=== PATIENT | male | born 1985 | race Caucasian/White ===

== ENCOUNTER 2017-01-25 20:25 | Emergency (ER) | payer OTHER ==
[2017-01-25 20:46] VITALS: BMI 37.6
--- NOTE | 2017-01-25 20:46 | PDOC ---
History of Present Illness - General History Source: Patient Exam Limitations: No Limitations - History of Present Illness Initial Comments: 01/25/17 21:10 The patient is a 31 year old male, with no significant past medical history, who presents to the emergency room complaining of sharp, intense head pain that radiates down the the right side of his neck and nausea. He states that he felt a sudden intense pain that started after he sneezed and coughed really hard. He reports sharp pain behind the right eye. He notes some nausea, but no episodes of vomiting. The head pain is exacerbated by bright light. He has not taken any medication for the pain. Denies changes in vision, dizziness, lightheadedness. Denies recent head trauma. Denies fever, chills. PAST MEDICAL HISTORY: no significant history PAST SURGICAL HISTORY: no significant history FAMILY HISTORY: no pertinent history SOCIAL HISTORY: Pt lives with family and is employed. MEDICATIONS: reviewed ALLERGIES: As per nursing notes Review of Systems General: No fevers or chills, no weakness, no weight loss HEENT: No change in vision. No sore throat, No ear pain CardioVascular: No chest pain or shortness of breath Respiratory:No cough, or wheezing. Gastrointestinal: +nausea no vomiting, diarrhea or constipation, No rectal bleeding Genitourinary: No dysuria, hematuria, or frequency Musculoskeletal: No joint or muscle pain or swelling Neurologic: +headache that radiates to the right side of his neck. No vertigo, dizziness or loss of consciousness Psychiatric: nor depression Skin: No rashes or easy bruising Endocrine: no increased thirst or abnormal weight change Allergic: no skin or latex allergy All other systems reviewed and normal Physical Exam GENERAL: The patient is awake, alert, and fully oriented, in moderate distress. HEAD: Normal with no signs of trauma. EYES: +photophobia. Pupils equal, round and reactive to light, extraocular movements intact, sclera anicteric, conjunctiva clear. NECK: tenderness on palpation of right lateral neck. Pt complains of discomfort with flexion but no nuchal rigidity. EXTREMITIES: Normal range of motion, no edema. NEUROLOGICAL: negative kernig's sign. negative brudzinski's sign. Normal speech , normal gait. PSYCH: Normal mood, normal affect. SKIN: Warm, Dry, normal turgor, no rashes or lesions noted. <Asha Strickland - Last Filed: 01/25/17 21:10> - General History Source: Patient Exam Limitations: No Limitations - History of Present Illness Initial Comments: 01/26/17 00:46 A portion of this note was documented by scribe services under my direction. I have reviewed the details of the note, within reason, and agree with the documentation. The case summary and management plan written by me. Assessment plan: This is a 31-year-old male who comes in complaining of severe headache. Patient has history significant for she RAL formation type I. Patient' s headache is associated with some ataxia and gait difficulty vomiting, photophobia and neck pain. Patient had a head CT that was negative for any other acute pathology Patient's workup was otherwise unremarkable he was given pain medications with no improvement in his symptoms. Patient will be transferred to [facility] Dr. Bailey neurosurgeon for further evaluation and possible decompression surgery of his Ciardi malformation. <Alexandra Dobbs I - Last Filed: 01/26/17 00:48> - General Chief Complaint: Pain Stated Complaint: RIGHT HEAD PAIN Time Seen by Provider: 01/25/17 20:32 Past History <Asha Strickland - Last Filed: 01/25/17 21:10> - Immunization History Immunization Up to Date: Yes - Psycho/Social/Smoking Cessation Hx Anxiety: No Suicidal Ideation: No Smoking Status: No Smoking History: Current every day smoker Have you smoked in the past 12 months: Yes Number of Cigarettes Smoked Daily: 15 Information on smoking cessation initiated: Yes 'Breaking Loose' booklet given: 04/13/16 Hx Alcohol Use: Yes Drug/Substance Use Hx: No Substance Use Type: None <Alexandra Dobbs I - Last Filed: 01/26/17 00:48> - Past Medical History Allergies/Adverse Reactions: Allergies Allergy/AdvReac Type Severity Reaction Status Date / Time No Known Allergies Allergy Verified 01/25/17 20:31 Home Medications: Ambulatory Orders NK [No Known Home Medication] 01/25/17 *Physical Exam - Vital Signs Last Vital Signs Temp Pulse Resp BP Pulse Ox 97.9 F 77 15 122/80 98 01/25/17 20:29 01/25/17 20:29 01/25/17 20:29 01/25/17 20:29 01/25/17 20:29 <Asha Strickland - Last Filed: 01/25/17 21:10> - Vital Signs Last Vital Signs Temp Pulse Resp BP Pulse Ox 97.9 F 77 15 122/80 98 01/25/17 20:29 01/25/17 20:29 01/25/17 20:29 01/25/17 20:29 01/25/17 20:29 <Alexandra Dobbs I - Last Filed: 01/26/17 00:48> ED Treatment Course - LABORATORY CBC & Chemistry Diagram: 01/25/17 21:15 01/25/17 21:15 <Alexandra Dobbs I - Last Filed: 01/26/17 00:48> *DC/Admit/Observation/Transfer <Asha Strickland - Last Filed: 01/25/17 21:10> <Alexandra Dobbs I - Last Filed: 01/26/17 00:48> Diagnosis at time of Disposition: Arnold-Chiari malformation, type I, Headache - Discharge Dispostion Disposition: TRANSFER ACUTE CARE/OTHER HOSP Condition at time of disposition: Good
[2017-01-25] MEDS ORDERED: ONDANSETRON 4 MG/2 ML VIAL IVPB ONE (20:59)
[2017-01-25] MEDS ORDERED: ACETAMINOPHEN 1000 MG/100 ML VIAL (NON FORMULARY) IVPB ONE (21:00)
[2017-01-25] MEDS ORDERED: ONDANSETRON 4 MG/2 ML VIAL ONE (21:21)
[2017-01-25] MEDS ORDERED: ACETAMINOPHEN INJECTION 100 ML IVPB ONE (21:21)
[2017-01-25 21:37] LABS: BASOPHIL 2.3 % (0-2.0); EOSINOPHIL 2.3 % (0-4.5); MCH 28.7 pg (25.7-33.7); MCHC 33.4 g/dl (32.0-35.9); MEAN PLT VOLUME 10.5 fl (7.5-11.1); NEUTROPHILS 53.3 % (42.8-82.8); PLATELET COUNT 182 K/MM3 (134-434); RDW 13.6 % (11.9-15.9); WHITE BLOOD COUNT 8.6 K/mm3 (4.0-10.8)
[2017-01-25 21:55] LABS: ALBUMIN 3.9 g/dl (3.5-5.0); ALK PHOS 88 U/L (32-92); ANION GAP 4 (8-16); BILIRUBIN,TOTAL 0.3 mg/dl (0.2-1.0); CALCIUM 8.9 mg/dl (8.4-10.2); CO2 30 mmol/L (22-28); CREATININE 0.9 mg/dl (0.6-1.3); GLUCOSE,RANDOM 96 mg/dl (74-106); SGOT/AST 25 U/L (10-42); SGPT/ALT 28 U/L (10-40); TOT PROT 6.8 g/dl (6.4-8.3)
[2017-01-25 23:50] VITALS: BP 113/77; PULSE 66; TEMP 97.6
[2017-01-26] MEDS ORDERED: morphine CARPU-JECT 4 MG/1 ML DISP.SYRIN IVPUSH ONE (01:08)
[2017-01-26] MEDS ORDERED: morphine CARPU-JECT 4 MG/1 ML DISP.SYRIN ONE (01:09)
== END 2017-01-26 01:38 | disposition short-term general hospital (02) ==
LOC: FER 20:25
PROC: 3E033NZ Introduction of Analgesics, Hypnotics, Sedatives into Peripheral Vein, Percutaneous Approach (ICD-10-PCS; principal; 2017-01-25)
PROC: 3E033GC Introduction of Other Therapeutic Substance into Peripheral Vein, Percutaneous Approach (ICD-10-PCS; 2017-01-25)
DX: R69 Illness, unspecified (principal); G93.5 Compression of brain; F17.210 Nicotine dependence, cigarettes, uncomplicated
CPT/HCPCS: 36415; 70450-TC; 70486-TC; 80053; 85025; 99282-25

== ENCOUNTER 2017-06-22 12:12 | Emergency (ER) | payer OTHER ==
[2017-06-22 12:44] VITALS: BP 126/71; PULSE 77; TEMP 97.9; BMI 36.9
[2017-06-22] MEDS ORDERED: IBUPROFEN 600 MG TABLET (FP) PO ONE ×2 (13:08→13:14)
--- NOTE | 2017-06-22 13:14 | PDOC ---
History of Present Illness - General Chief Complaint: Injury Stated Complaint: FALL/ LT ELBOW PAIN Time Seen by Provider: 06/22/17 12:41 History Source: Patient Exam Limitations: No Limitations - History of Present Illness Initial Comments: 06/22/17 13:08 31 yr male with c/o left elbow injury after slip and fall on ice outside. no head trauma. no deformity. Past History - Past Medical History Allergies/Adverse Reactions: Allergies Allergy/AdvReac Type Severity Reaction Status Date / Time No Known Allergies Allergy Verified 01/25/17 20:31 Home Medications: Ambulatory Orders NK [No Known Home Medication] 01/25/17 COPD: No Other medical history: chiarimalformation - Surgical History Neurologic Surgery: Yes (crainetomy) - Immunization History Immunization Up to Date: Yes - Suicide/Smoking/Psychosocial Hx Smoking Status: No Smoking History: Never smoked Have you smoked in the past 12 months: Yes Number of Cigarettes Smoked Daily: 10 Information on smoking cessation initiated: No 'Breaking Loose' booklet given: 04/13/16 Hx Alcohol Use: No Drug/Substance Use Hx: No Substance Use Type: None, Alcohol *Physical Exam - Vital Signs Last Vital Signs Temp Pulse Resp BP Pulse Ox 97.9 F 77 17 126/71 100 06/22/17 12:36 06/22/17 12:36 06/22/17 12:36 06/22/17 12:36 06/22/17 12:36 - Physical Exam General Appearance: Yes: Nourished, Appropriately Dressed HEENT: positive: EOMI, LISA, Normal ENT Inspection, TMs Normal, Pharynx Normal Neck: positive: Supple Respiratory/Chest: positive: Lungs Clear, Normal Breath Sounds Musculoskeletal: positive: Normal Inspection Extremity: positive: Normal Capillary Refill, Tender (lateral elbow, FROM nv intact no swelling or deformity ) Integumentary: positive: Normal Color, Dry, Warm Neurologic: positive: Fully Oriented, Alert, Normal Mood/Affect, Normal Response , Motor Strength 5/5 ED Treatment Course - RADIOLOGY Radiology Studies Ordered: Category Date Time Status ELBOW-LEFT [RAD] Stat Radiology 06/22/17 12:54 Ordered Medical Decision Making - Medical Decision Making 06/22/17 13:11 cc: slip and fall injured left elbow will give motrin and xray 06/22/17 13:26 negative xray will dc home *DC/Admit/Observation/Transfer Diagnosis at time of Disposition: Elbow injury Qualifiers: Encounter type: initial encounter Laterality: left Qualified Code(s): S59.902A - Unspecified injury of left elbow, initial encounter - Discharge Dispostion Disposition: HOME Condition at time of disposition: Good - Referrals Referrals: Xavier Sexton MD [Staff Physician] - - Patient Instructions Additional Instructions: apply ice every 2hrs for 20 minutes for the next 2 days take motrin as needed for pain (over the counter advil, ibuprofen or motrin) follow with if any worsening pain - Post Discharge Activity
== END 2017-06-22 13:35 | disposition home or self-care (01) ==
LOC: JERFT 12:12
DX: S59.902A Unspecified injury of left elbow, initial encounter (principal); Z87.891 Personal history of nicotine dependence; G93.5 Compression of brain; W00.0XXA Fall on same level due to ice and snow, initial encounter; Y93.89 Activity, other specified; Y92.9 Unspecified place or not applicable
CPT/HCPCS: 73070-TC-LT-FY; 99281-25

== ENCOUNTER 2017-10-03 14:03 | Emergency (ER) | payer OTHER ==
[2017-10-03 14:19] VITALS: BP 130/85; PULSE 88; TEMP 98; BMI 36.1
[2017-10-03] MEDS ORDERED: KETOROLAC TROMETHAMINE 60 MG/2 ML VIAL IM ONE (14:35)
[2017-10-03] MEDS ORDERED: KETOROLAC TROMETHAMINE 60 MG/2 ML VIAL ONE (14:38)
--- NOTE | 2017-10-03 14:40 | PDOC ---
History of Present Illness - General History Source: Patient Exam Limitations: No Limitations - History of Present Illness Initial Comments: 10/03/17 14:46 The patient is a 31 year old male with a significant PMH of herniated disc (2013 ) and kidney stones who presents to the emergency department with acute lower back pain for 3 days. The patient reports that he woke up 3 days ago and experienced difficulty moving around secondary to his lower back pain. The patient states that his lower back pain severity is an 8/10 and radiates down his right leg to his right groin. He describes his lower back pain as constant and worse with laying down. He reports that he went to urgent care yesterday for this matter by which he was given medication for his acute back pain. The patient reports that he took his prescribed pain medication this morning with little relief. 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 He states that he had a back injury in 2013 at work where he fell 15 feet from a scaffolding platform. The patient reports that he injured his knee and back in this incident. The patient denies any recent injury to his back. He denies any numbness, weakness or tingly sensation. The patient denies any chest pain, shortness of breath, headache or dizziness. He denies fever, chills, nausea, vomit, diarrhea ,constipation or urinary symptoms. The patient denies any other complaints. <Bean Mcmullen - Last Filed: 10/03/17 14:46> - History of Present Illness Initial Comments: 10/03/17 15:33 Physical exam: Alert and oriented moderately obese mild distress due to back pain but cooperative Afebrile, vital signs normal HEENT clear Neck supple without bruit mass or nodes Chest clear CV regular without murmur rub or gallop Abdomen benign. No CVAT Extremities no CCE Skin clear, no rash, adequate turgor and wet mucous membranes Neurological C2 to 12 intact. Strength full and symmetric. No focal sensory or motor deficits. Deep tendon reflexes are 2+ symmetric except for the right knee and ankle jerk, which are absent. This may be chronic. Gait is stable but mildly impaired due to back pain. LS spine: Loss of normal lumbar lordosis. Paravertebral spasm. No point tenderness over the vertebral bodies. No inflammatory changes. No tilt. Straight leg raising is negative on the left and right. Impression: A character of the pain and the physical findings do not support a recurrent kidney stone. This is most likely musculoskeletal back pain, aggravated by sitting and driving for prolonged periods, and recent weight gain Plan: Rest and symptomatic treatment. Referral to Back Specialist. Encouraged weight loss, gradual increase in exercise, and specific stretching and muscle strengthening. Fully ambulatory and much were comfortable upon discharge, to continue medication and follow-up with Dr. Perez. <Kevin De Los Santos - Last Filed: 10/03/17 15:37> - General Chief Complaint: Pain, Acute Stated Complaint: LOWER BACK PAIN Time Seen by Provider: 10/03/17 14:34 Past History <Bean Mcmullen - Last Filed: 10/03/17 14:46> - Past Medical History COPD: No Other medical history: KIDNEY STONES, HERNIATED DISC - Surgical History Neurologic Surgery: Yes (crainetomy) - Immunization History Immunization Up to Date: Yes - Suicide/Smoking/Psychosocial Hx Smoking Status: No Smoking History: Current every day smoker Have you smoked in the past 12 months: Yes Number of Cigarettes Smoked Daily: 15 Information on smoking cessation initiated: Yes 'Breaking Loose' booklet given: 10/03/17 Hx Alcohol Use: Yes (SOCIAL) Drug/Substance Use Hx: Yes (MARIJUANA) Substance Use Type: Alcohol, Marijuana <Kevin De Los Santos - Last Filed: 10/03/17 15:37> - Past Medical History Allergies/Adverse Reactions: Allergies Allergy/AdvReac Type Severity Reaction Status Date / Time hydrocodone Allergy Intermediate Itching Verified 10/03/17 14:08 Home Medications: Ambulatory Orders Ketorolac Tromethamine [Toradol] 10 mg PO Q6H #20 tablet 10/03/17 hydrOXYzine PAMOATE [Vistaril -] 25 - 50 mg PO TID #20 capsule 10/03/17 Review of Systems - Review of Systems Able to Perform ROS?: Yes Comments:: 10/03/17 14:46 CONSTITUTIONAL: Absent: fever, chills, diaphoresis, generalized weakness, malaise, loss of appetite HEENT: Absent: rhinorrhea, nasal congestion, throat pain, throat swelling, difficulty swallowing, mouth swelling, ear pain, eye pain, visual Changes CARDIOVASCULAR: Absent: chest pain, syncope, palpitations, irregular heart rate, lightheadedness , peripheral edema RESPIRATORY: Absent: cough, shortness of breath, dyspnea with exertion, orthopnea, wheezing, stridor, hemoptysis GASTROINTESTINAL: Absent: abdominal pain, abdominal distension, nausea, vomiting, diarrhea, constipation, melena, hematochezia GENITOURINARY: Absent: dysuria, frequency, urgency, hesitancy, hematuria, flank pain, genital pain MUSCULOSKELETAL: (+) acute lower back pain with radiation to right leg Absent: arthralgia, joint swelling SKIN: Absent: rash, itching, pallor HEMATOLOGIC/IMMUNOLOGIC: Absent: easy bleeding, easy bruising, lymphadenopathy, frequent infections ENDOCRINE: Absent: unexplained weight gain, unexplained weight loss, heat intolerance, cold intolerance NEUROLOGIC: Absent: headache, focal weakness or paresthesias, dizziness, unsteady gait, seizure, mental status changes, bladder or bowel incontinence PSYCHIATRIC: Absent: anxiety, depression, suicidal or homicidal ideation, hallucinations. <Bean Mcmullen - Last Filed: 10/03/17 14:46> *Physical Exam - Vital Signs Last Vital Signs Temp Pulse Resp BP Pulse Ox 98 F 88 20 130/85 98 10/03/17 14:08 10/03/17 14:08 10/03/17 14:08 10/03/17 14:08 10/03/17 14:08 <Bean Mcmullen - Last Filed: 10/03/17 14:46> - Vital Signs Last Vital Signs Temp Pulse Resp BP Pulse Ox 98 F 88 20 130/85 98 10/03/17 14:08 10/03/17 14:08 10/03/17 14:08 10/03/17 14:08 10/03/17 14:08 <Kevin De Los Santos - Last Filed: 10/03/17 15:37> ED Treatment Course - Medications Given in the ED: ED Medications Discontinued Medications Generic Name Dose Route Start Last Admin Trade Name Freq PRN Reason Stop Dose Admin Ketorolac Tromethamine 60 mg 10/03/17 14:35 10/03/17 14:42 Toradol Injection - IM 10/03/17 14:36 60 mg ONCE ONE Administration <Bean Mcmullen - Last Filed: 10/03/17 14:46> *DC/Admit/Observation/Transfer - Attestations Scribe Attestion: 10/03/17 14:46 Documentation prepared by Bean Mcmullen, acting as esthetician and manager medical spa for Kevin Enrique MD. <Bean Mcmullen - Last Filed: 10/03/17 14:46> - Discharge Dispostion Decision to Admit order: No <Kevin De Los Santos - Last Filed: 10/03/17 15:37> Diagnosis at time of Disposition: Low back strain Qualifiers: Encounter type: initial encounter Qualified Code(s): S39.012A - Strain of muscle, fascia and tendon of lower back, initial encounter - Discharge Dispostion Disposition: HOME Condition at time of disposition: Improved - Prescriptions Prescriptions: hydrOXYzine PAMOATE [Vistaril -] 25 - 50 mg PO TID #20 capsule Ketorolac Tromethamine [Toradol] 10 mg PO Q6H #20 tablet - Referrals Referrals: Ayan Perez MD [Staff Physician] - 1 week - Patient Instructions Printed Discharge Instructions: DI for Low Back Pain Additional Instructions: Avoid sitting. Standing or lying on a flat surface is much preferable. Small amounts of walking but no prolonged standing or running. Use heat. Medication as directed. See orthopedic Back Specialist if symptoms persist one-week. - Post Discharge Activity Forms/Work/School Notes: Back to Work
== END 2017-10-03 15:37 | disposition home or self-care (01) ==
LOC: FER 14:03
PROC: 3E0233Z Introduction of Anti-inflammatory into Muscle, Percutaneous Approach (ICD-10-PCS; principal; 2017-10-03)
DX: S39.012A Strain of muscle, fascia and tendon of lower back, initial encounter (principal); X58.XXXA Exposure to other specified factors, initial encounter; Y93.89 Activity, other specified; Y92.9 Unspecified place or not applicable; F17.210 Nicotine dependence, cigarettes, uncomplicated; Z87.442 Personal history of urinary calculi
CPT/HCPCS: 96372; 99282-25

== ENCOUNTER 2017-12-05 11:26 | Emergency (ER) | payer OTHER ==
[2017-12-05 11:33] VITALS: BP 128/75; PULSE 85; TEMP 98.2; BMI 36.9
--- NOTE | 2017-12-05 11:34 | PDOC ---
History of Present Illness - General Chief Complaint: Pain Stated Complaint: HEAD AND NECK PAIN Time Seen by Provider: 12/05/17 11:33 History Source: Patient Exam Limitations: No Limitations - History of Present Illness Initial Comments: 12/05/17 11:47 Mr Hernandez is a 32 yo M who presents to the ER for evaluation of headache He has a history of Arnold Chiari Malformation S/p decompressive craniectomy Pt Was told that postoperatively he could develop headaches. He has had intermittent headaches which usually resolve within an hour to 2 hours. He presents today's emergency department because his headaches have been persistent and worsening. He states currently his pain is 7-8/10. He describes his headache as throbbing. His headache is worse with laying down or trying to relax, he is difficulty falling asleep because his headaches at that point her 10/10. He denies head trauma. He states the headache is mostly located in the right head and radiates to his shoulder blades. Pain is worse with leaning forward. No associated fevers or chills. He denies nausea, vomiting. Has noted dizziness. Has noted photophobia. He has been taking Motrin for his headaches but this longer releases head pain. PMH: Arnold-Chiari malformation PSH: Craniotomy, left knee surgery for injury Medications: Denies ALLERGIES: Hydromorphone Social: Uses tobacco, marijuana occasionally, alcohol socially Family history: Noncontributory GENERAL/CONSTITUTIONAL: No: fever, chills, weakness, loss of appetite. HEAD, EYES, EARS, NOSE AND THROAT: No: change in vision, ear pain, discharge, sore throat, throat swelling. CARDIOVASCULAR: No: chest pain, lightheadedness, palpitations, syncope RESPIRATORY: No: cough, shortness of breath, wheezing, hemoptysis, stridor. GASTROINTESTINAL: No: nausea, vomiting, diarrhea, abdominal cramping, rectal bleeding, constipation. GENITOURINARY: No: dysuria, hematuria, frequency, urgency, flank pain. MUSCULOSKELETAL: No: back pain, neck pain, joint pain, muscle swelling or pain SKIN AND BREASTS: No: lesions, pallor, rash or easy bruising. NEUROLOGIC: Yes: headache, neck pain, dizziness ENDOCRINE: No: unexplained weight gain or loss HEMATOLOGIC/LYMPHATIC: No: anemia, easy bleeding, swelling nodes. GENERAL: The patient is in no acute distress. HEAD: Normal with no signs of trauma. EYES: PERRLA, EOMI, sclera anicteric, conjunctiva clear. ENT: Ears normal, nares patent, oropharynx clear without exudates. Moist mucous membranes. NECK: Normal range of motion, supple without lymphadenopathy, JVD, or masses. LUNGS: Breath sounds equal, clear to auscultation bilaterally. No wheezes, and no crackles. HEART:Regular rate and rhythm, normal S1 and S2 without murmur, rub or gallop. ABDOMEN: Soft, nontender, normoactive bowel sounds. No guarding, no rebound. No masses palpable. EXTREMITIES: Normal range of motion, no edema. No clubbing or cyanosis. No erythema, or tenderness. NEUROLOGICAL: Cranial nerves II through XII grossly intact. Normal speech. No focal neurological deficits. MUSCULOSKELETAL: Back non-tender to palpation, no CVA tenderness SKIN: Warm, Dry, normal turgor, no rashes or lesions noted. 12/07/17 00:46 Past History - Past Medical History Allergies/Adverse Reactions: Allergies Allergy/AdvReac Type Severity Reaction Status Date / Time hydrocodone Allergy Intermediate Itching Verified 12/05/17 11:27 Home Medications: Ambulatory Orders Acetaminophen [Tylenol -] 1,000 mg PO ONCE PRN 12/05/17 Acetaminophen/Caffeine/Butalb [Fioricet -] 1 tab PO BID PRN #20 tab MDD 2 Naproxen Sodium [Aleve] 440 mg PO ONCE PRN 12/05/17 COPD: No Other medical history: CHIARI MALFORMATION - Surgical History Neurologic Surgery: Yes (crainetomy) - Immunization History Immunization Up to Date: Yes - Suicide/Smoking/Psychosocial Hx Smoking Status: No Smoking History: Current every day smoker Have you smoked in the past 12 months: Yes Number of Cigarettes Smoked Daily: 15 Information on smoking cessation initiated: Yes 'Breaking Loose' booklet given: 12/05/17 Hx Alcohol Use: Yes (SOCIAL) Drug/Substance Use Hx: Yes (MARIJUANA) Substance Use Type: Alcohol, Marijuana *Physical Exam - Vital Signs Last Vital Signs Temp Pulse Resp BP Pulse Ox 98.2 F 85 20 128/75 98 12/05/17 11:27 12/05/17 11:27 12/05/17 11:27 12/05/17 11:27 12/05/17 11:27 ED Treatment Course - LABORATORY CBC & Chemistry Diagram: 12/05/17 11:58 12/05/17 11:58 Medical Decision Making - Medical Decision Making 12/05/17 14:14 Laboratory Tests 12/05/17 12/05/17 11:58 11:58 WBC 6.9 Hgb 13.5 Hct 40.5 Plt Count 218 Sodium 138 Potassium 4.4 Chloride 107 Carbon Dioxide 25 BUN 9 Creatinine 0.8 Random Glucose 93 12/05/17 14:18 CT demonstrates decompressive craniectomy No Mass, bleeding, shift Headache improved from 02/27 -->08/28 Will give Toradol Will discharge to home Will ask pt to follow up with Neuro and his Neurosurgeon Dr Bailey Clinical Impression: headache, initial presentation *DC/Admit/Observation/Transfer Diagnosis at time of Disposition: Headache Qualifiers: Headache type: unspecified Headache chronicity pattern: chronic headache Intractability: not intractable Qualified Code(s): R51 - Headache - Discharge Dispostion Disposition: HOME Condition at time of disposition: Stable Decision to Admit order: No - Prescriptions Prescriptions: Acetaminophen/Caffeine/Butalb [Fioricet -] 1 tab PO BID PRN #20 tab MDD 2 PRN Reason: Severe Pain - Referrals - Patient Instructions Printed Discharge Instructions: DI for Migraine, DI for Headache Additional Instructions: Mr Hernandez Thank you for coming in to the ER today Please be sure to follow up with Dr Bailey and with Neurology Please take motrin for a slight headache If you have a more severe headache, please use Excedrin per manufacturers recommendation If you have a very severe headache, use Fiorecet Return to the ER for any other concerns or complaints Also, be sure to follow up with your primary care physician within 1 week - Post Discharge Activity Forms/Work/School Notes: Back to Work
[2017-12-05] MEDS ORDERED: METOCLOPRAMIDE HCL INJECTION 10 MG/2 ML VIAL IVPUSH ONE (11:44)
[2017-12-05] MEDS ORDERED: ACETAMINOPHEN 1000 MG/100 ML VIAL (NON FORMULARY) IVPB ONE (11:44)
[2017-12-05] MEDS ORDERED: SODIUM CHLORIDE 1,000 ML IV SCH (11:45)
[2017-12-05 12:51] LABS: BASO % 0.5 % (0-2.0); EOS % 1.8 % (0-4.5); HEMATOCRIT 40.5 % (35.4-49); HEMOGLOBIN 13.5 GM/dl (11.7-16.9); LYMPH % 30.3 % (8-40); MCH 28.8 pg (25.7-33.7); MCHC 33.5 g/dl (32.0-35.9); MEAN CELL VOLUME 86.2 fl (80-96); MEAN PLT VOLUME 10.2 fl (7.5-11.1); MONO % 6.7 % (3.8-10.2); NEUT % 60.7 % (42.8-82.8); PLATELET COUNT 218 K/MM3 (134-434); RDW 13.8 % (11.9-15.9); WHITE BLOOD COUNT 6.9 K/mm3 (4.0-10.8)
[2017-12-05 13:12] LABS: ALBUMIN 3.9 g/dl (3.5-5.0); ALK PHOS 79 U/L (32-92); ANION GAP 6 (8-16); BILIRUBIN,TOTAL 0.4 mg/dl (0.2-1.0); BLOOD UREA NITROGEN 9 mg/dl (7-18); CHLORIDE 107 mmol/L (98-107); CO2 25 mmol/L (22-28); CREATININE 0.8 mg/dl (0.6-1.3); GLUCOSE,RANDOM 93 mg/dl (74-106); POTASSIUM 4.4 mmol/L (3.5-5.1); SGOT/AST 26 U/L (10-42); SGPT/ALT 23 U/L (10-40); SODIUM 138 mmol/L (136-145); TOT PROT 6.2 g/dl (6.4-8.3)
[2017-12-05] MEDS ORDERED: KETOROLAC TROMETHAMINE 30 MG/1 ML VIAL IVPUSH ONE (14:18)
[2017-12-05] MEDS ORDERED: KETOROLAC TROMETHAMINE 30 MG/1 ML VIAL ONE (14:36)
== END 2017-12-05 14:48 | disposition home or self-care (01) ==
LOC: FER 11:26
PROC: 3E0333Z Introduction of Anti-inflammatory into Peripheral Vein, Percutaneous Approach (ICD-10-PCS; principal; 2017-12-05)
PROC: 3E0337Z Introduction of Electrolytic and Water Balance Substance into Peripheral Vein, Percutaneous Approach (ICD-10-PCS; 2017-12-05)
PROC: 3E033GC Introduction of Other Therapeutic Substance into Peripheral Vein, Percutaneous Approach (ICD-10-PCS; 2017-12-05)
DX: R51 Headache (principal); Q07.00 Arnold-Chiari syndrome without spina bifida or hydrocephalus; Z98.890 Other specified postprocedural states
CPT/HCPCS: 36415; 70450-TC; 72125-TC; 80053; 85025; 99282-25; J7030

== ENCOUNTER 2020-09-29 04:22 | Day surgery (SDC) | payer OTHER ==
[2020-09-24 12:32] VITALS: BMI 36.6
[2020-09-29] MEDS ORDERED: PROPOFOL 20 ML ONE ×2 (07:26)
[2020-09-29] MEDS ORDERED: KETOROLAC TROMETHAMINE 30 MG/1 ML VIAL ONE (07:26)
[2020-09-29] MEDS ORDERED: DEXAMETHASONE SOD PHOSPHATE 4 MG/1 ML VIAL ONE (07:26)
[2020-09-29] MEDS ORDERED: MIDAZOLAM HCL 2 MG/2 ML SINGLE DOSE VIAL ONE (07:27)
[2020-09-29] MEDS ORDERED: SUCCINYLCHOLINE CHLORIDE 200 MG/10 ML SYRINGE ONE (07:27)
[2020-09-29] MEDS ORDERED: LIDOCAINE HCL/PF 2% SDV 5ML VIAL ONE (07:27)
[2020-09-29] MEDS ORDERED: BUPIVACAINE HCL/PF 0.5% (5MG/ML) 10 ML VIAL ONE (07:30)
[2020-09-29] MEDS ORDERED: SEVOFLURANE 250 ML BTL ONE (07:33)
[2020-09-29] MEDS ORDERED: BUPIVACAINE HCL/PF 0.5% (5MG/ML) 10 ML VIAL IJ ONE ×2 (08:00→08:52)
[2020-09-29] MEDS ORDERED: ceFAZolin SODIUM 1 GM VIAL IVPB ONE (08:15)
[2020-09-29] MEDS ORDERED: ceFAZolin SODIUM 1 GM VIAL ONE (08:15)
[2020-09-29] MEDS ORDERED: ACETAMINOPHEN INJECTION 100 ML IVPB ONE (08:33)
[2020-09-29] MEDS ORDERED: ONDANSETRON 4 MG/2 ML VIAL IVPUSH PRN (10:00)
[2020-09-29] MEDS ORDERED: oxyCODONE HCL 5 MG TABLET PO PRN (10:00)
[2020-09-29] MEDS ORDERED: LACTATED RINGERS SOLUTION 1,000 ML IV SCH (10:00)
[2020-09-29 11:52] VITALS: BP 136/80; PULSE 68; TEMP 97.7
== END 2020-09-29 12:00 | disposition home or self-care (01) ==
LOC: JASU-SURG 04:22
PROVIDERS: ATTEND Orthopaedic Surgery
PROC: 0SBC4ZZ Excision of Right Knee Joint, Percutaneous Endoscopic Approach (ICD-10-PCS; 2020-09-29)
PROC: 0SBC4ZZ Excision of Right Knee Joint, Percutaneous Endoscopic Approach (ICD-10-PCS; principal; 2020-09-29 08:00)
DX: S83.281A Other tear of lateral meniscus, current injury, right knee, initial encounter (principal); M17.11 Unilateral primary osteoarthritis, right knee; M65.861 Other synovitis and tenosynovitis, right lower leg; X58.XXXA Exposure to other specified factors, initial encounter; Y92.9 Unspecified place or not applicable; Y93.9 Activity, unspecified
CPT/HCPCS: 94760; 97116-GP; J0131

== ENCOUNTER 2022-09-27 12:47 | Emergency (ER) | payer OTHER ==
[2022-09-27 13:01] VITALS: BP 132/87; PULSE 76; RESP 18; TEMP 99; BMI 33.0
[2022-09-27] MEDS ORDERED: LIDOCAINE 5% TOPICAL PATCH TP ONE (13:13)
[2022-09-27] MEDS ORDERED: KETOROLAC TROMETHAMINE 30 MG/1 ML VIAL IM ONE (13:13)
[2022-09-27] MEDS ORDERED: LIDOCAINE 5% TOPICAL PATCH ONE (13:18)
[2022-09-27] MEDS ORDERED: KETOROLAC TROMETHAMINE 30 MG/1 ML VIAL ONE (13:18)
[2022-09-27] MEDS ORDERED: LIDOCAINE PATCH REMOVAL MC SCH (22:00)
== END 2022-09-27 14:56 | disposition home or self-care (01) ==
LOC: FER 12:47
PROC: 3E0233Z Introduction of Anti-inflammatory into Muscle, Percutaneous Approach (ICD-10-PCS; principal; 2022-09-27)
DX: M54.50 Low back pain, unspecified (principal); G89.29 Other chronic pain; S39.012A Strain of muscle, fascia and tendon of lower back, initial encounter; X58.XXXA Exposure to other specified factors, initial encounter; Y93.01 Activity, walking, marching and hiking; Z91.81 History of falling
CPT/HCPCS: 72100-TC-FY; 81003; 87086; 99284-25

== ENCOUNTER 2022-12-18 08:54 | Emergency (ER) | payer OTHER ==
[2022-12-18 09:04] VITALS: BP 133/88; PULSE 85; RESP 16; TEMP 97.6; BMI 31.3
[2022-12-18] MEDS ORDERED: diazePAM 2 MG TABLET PO ONE (09:18)
[2022-12-18] MEDS ORDERED: KETOROLAC TROMETHAMINE 15 MG/ML VIAL IM ONE (09:18)
[2022-12-18] MEDS ORDERED: ACETAMINOPHEN 500 MG TABLET (FP) PO ONE (09:18)
[2022-12-18] MEDS ORDERED: LIDOCAINE 5% TOPICAL PATCH TP ONE (09:18)
[2022-12-18] MEDS ORDERED: diazePAM 2 MG TABLET ONE (09:48)
[2022-12-18] MEDS ORDERED: KETOROLAC TROMETHAMINE 15 MG/ML VIAL ONE (09:48)
[2022-12-18] MEDS ORDERED: LIDOCAINE 5% TOPICAL PATCH ONE (09:48)
[2022-12-18] MEDS ORDERED: ACETAMINOPHEN 500 MG TABLET (FP) ONE ×2 (09:48→09:56)
[2022-12-18] MEDS ORDERED: LIDOCAINE PATCH REMOVAL MC ONE (22:00)
== END 2022-12-18 11:28 | disposition home or self-care (01) ==
LOC: JERFT 08:54 → JER 08:54 → JERFT 11:28
PROC: 3E0233Z Introduction of Anti-inflammatory into Muscle, Percutaneous Approach (ICD-10-PCS; principal; 2022-12-18)
DX: M54.50 Low back pain, unspecified (principal); G89.29 Other chronic pain
CPT/HCPCS: 99284-25

== ENCOUNTER 2024-03-24 10:03 | Emergency (ER) | payer SELFPAY ==
[2024-03-24 10:28] VITALS: BP 133/96; PULSE 97; RESP 17; TEMP 97.9; BMI 36.9
[2024-03-24] MEDS ORDERED: METHOCARBAMOL 500 MG TABLET PO ONE (11:31)
[2024-03-24] MEDS ORDERED: LIDOCAINE 4% PATCH TP ONE (11:35)
[2024-03-24] MEDS ORDERED: METHOCARBAMOL 500 MG TABLET ONE (11:35)
[2024-03-24] MEDS ORDERED: KETOROLAC TROMETHAMINE 30 MG/1 ML VIAL ONE (11:35)
[2024-03-24] MEDS ORDERED: ACETAMINOPHEN 500 MG TABLET (FP) ONE (11:36)
[2024-03-24] MEDS: ACETAMINOPHEN 500 MG TABLET (FP) PO ONE (11:44)
[2024-03-24] MEDS: LIDOCAINE 5% TOPICAL PATCH TP ONE (11:44)
[2024-03-24] MEDS: KETOROLAC TROMETHAMINE 30 MG/1 ML VIAL IM ONE (11:44)
[2024-03-24] MEDS: METHOCARBAMOL 500 MG TABLET PO ONE (11:45)
[2024-03-24] MEDS: LIDOCAINE 4% PATCH TP ONE (11:45)
[2024-03-24] MEDS ORDERED: LIDOCAINE PATCH REMOVAL MC SCH ×2 (22:00)
== END 2024-03-24 12:51 | disposition home or self-care (01) ==
LOC: JER 10:03 → JERFT 10:03
PROC: 3E0133Z Introduction of Anti-inflammatory into Subcutaneous Tissue, Percutaneous Approach (ICD-10-PCS; principal; 2024-03-24)
DX: M54.41 Lumbago with sciatica, right side (principal); G89.29 Other chronic pain
CPT/HCPCS: 99284-25